=== PATIENT | female | born 2000 | race Hispanic/Latino ===

== ENCOUNTER 2023-01-15 09:03 | Emergency (ER) | payer BC ==
--- OUTSIDE RECORDS SUMMARY | 2023-01-15 09:28 | XMS REPORT | Continuity of Care Document ---
:2000 Author Organization [facility] t Address [address] [place] [id number] Care Team Providers Name Role Phone [email or web address] Attending Clinician Unavailable [email or web address] Admitting Clinician Unavailable Problems This patient has no known problems. Allergies, Adverse Reactions, Alerts This patient has no known allergies or adverse reactions. Medications This patient has no known medications. Procedures This patient has no known procedures. Encounters Start End Encounter Admission Attending Care Care Encounter Source Date/Time Date/Time Type Type Clinicians Facility Department ID 2023-01-03 2023-01-03 Outpatient [email or web address] PRIV PRIV [id number] [facility] 00:00:00 00:00:00 diyala_S [id number] Medic al Results This patient has no known results.
[2023-01-15 10:00] LABS: Specific Gravity 1.005 (1.005-1.030)
--- NOTE | 2023-01-15 10:06 | ER ---
Nurse's Notes [facility] Name: Gayatri Lindo Age: 22 yrs Sex: Female : 2000 Arrival Date: 01/15/2023 Time: 09:03 Bed 14 Private MD: Diagnosis: Premenstrual tension syndrome Presentation: 01/15 09:22 Chief complaint: Patient states: c/o breast tenderness X 1-2 weeks, she told her job iw her chest hurt and they told her she needed to get a work note. Coronavirus screen: At this time, the client does not indicate any symptoms associated with coronavirus-19. Ebola Screen: Patient negative for fever greater than or equal to 101.5 degrees Fahrenheit, and additional compatible Ebola Virus Disease symptoms Patient denies exposure to infectious person. Patient denies travel to an Ebola-affected area in the 21 days before illness onset. No symptoms or risks identified at this time. Initial Sepsis Screen: Does the patient meet any 2 criteria? No. Patient's initial sepsis screen is negative. Does the patient have a suspected source of infection?. Risk Assessment: Do you want to hurt yourself or someone else? Patient reports no desire to harm self or others. Onset of symptoms was January 08, 2023. 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 - Social history:: Smoking status: Patient denies any tobacco usage or history of. Screenin:30 [facility] ED Fall Risk Assessment (Adult) Score/Fall Risk Level 0 - 2 = Low Risk. Abuse eh3 screen: Denies threats or abuse. Denies injuries from another. Nutritional screening: No deficits noted. Tuberculosis screening: No symptoms or risk factors identified. Assessment: 09:30 General: Appears in no apparent distress. uncomfortable, Behavior is cooperative, eh3 appropriate for age, anxious. Pain: Complains of pain in right breast and left breast. Neuro: Level of Consciousness is awake, alert, obeys commands, Oriented to person, place, time, situation. Cardiovascular: Capillary refill < 3 seconds Patient's skin is warm and dry. Respiratory: Airway is patent Respiratory effort is even, unlabored, Respiratory pattern is regular, symmetrical. GI: Abdomen is round non-distended, Bowel sounds present X 4 quads. Abd is soft and non tender X 4 quads. GI: Reports cramping. : Denies pain urinary frequency, urgency. Derm: Skin is pink, warm \T\ dry. Musculoskeletal: Circulation, motion, and sensation intact. Range of motion: intact in all extremities. Vital Signs: 09:22 BP 139 / 83; Pulse 92; Resp 16; Temp 98.4; Pulse Ox 100% ; Weight 61.23 kg; Height 5 iw ft. 2 in. ; Pain 8/10; 10:15 BP 117 / 74; Pulse 84; Resp 18; Pulse Ox 100% on R/A; eh3 09:22 Body Mass Index 24.69 (61.23 kg, 157.48 cm) iw 09:22 Pain Scale: Adult iw ED Course: 09:04 Patient arrived in ED. rg4 09:04 Marco Rivera DO is Attending Physician. ms3 09:24 Triage completed. iw 09:25 Arm band placed on. iw 09:30 Patient has correct armband on for positive identification. Bed in low position. Call eh3 light in reach. Side rails up X2. Provided Education on: use of call guy. Pulse ox on. NIBP on. 09:38 Lori Hernandez, FARHAD is Primary Nurse. eh3 10:34 No provider procedures requiring assistance completed. Patient did not have IV access eh3 during this emergency room visit. Administered Medications: No medications were administered Medication: 10:34 VIS not applicable for this client. eh3 Outcome: 10:05 Discharge ordered by . snw 10:35 Discharged to home ambulatory, eh3 10:35 Condition: stable 10:35 Discharge instructions given to patient, Instructed on discharge instructions, follow up and referral plans. medication usage, Demonstrated understanding of instructions, follow-up care, medications, Prescriptions given X 1, 10:36 Patient left the ED. eh3 Signatures: Yusra Collado, RIOS-C ASSURANCE ANALYST-Dericw Ruthie Kelly, RN FARHAD iw Anahi Perez rg4 Marco Rivera DO DO ms3 Lori Hernandez, RN RN eh3
--- NOTE | 2023-01-15 10:06 | EDPHYS ---
Physician Documentation [facility] Name: Gayatri Lindo Age: 22 yrs Sex: Female : 2000 Arrival Date: 01/15/2023 Time: 09:03 Bed 14 Private MD: ED Physician Marco Rivera HPI: 01/15 09:12 This 22 yrs old Female presents to ER via Unassigned with complaints of ms3 Abdominal Cramping. 09:12 22-year-old female with past medical history of asthma presents to the emergency ms3 department for bilateral breast pain. Patient states this occurs with her menses and she is 3 days late. Patient denies vaginal bleeding. Patient states she is taken Midol without relief. Patient denies alleviating or inciting factors. 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 - Social history:: Smoking status: Patient denies any tobacco usage or history of. ROS: 09:12 Constitutional: Negative for fever, and chills. Neck: Negative for injury, pain, and ms3 swelling, Cardiovascular: Negative for chest pain, and palpitations. Respiratory: Negative for shortness of breath, cough, wheezing, and pleuritic chest pain, Abdomen/GI: Negative for abdominal pain, nausea, vomiting, diarrhea, and constipation, MS/Extremity: Negative for injury and deformity, Skin: Negative for injury, rash, and discoloration, 09:12 Cardiovascular: Positive for 09:12 MS/extremity: Positive for Bilateral Breast pain, Exam: 09:12 Constitutional: This is a well developed, well nourished patient who is awake, alert, ms3 and in no acute distress. Head/Face: Normocephalic, atraumatic. Neck: Trachea midline, no cervical lymphadenopathy. Supple, full range of motion without nuchal rigidity, or vertebral point tenderness. No Meningismus. Cardiovascular: Regular rate and rhythm with a normal S1 and S2. No gallops, murmurs, or rubs. Normal PMI, no JVD. No pulse deficits. Respiratory: Lungs have equal breath sounds bilaterally, clear to auscultation and percussion. No rales, rhonchi or wheezes noted. No increased work of breathing, no retractions or nasal flaring. Abdomen/GI: Soft, non-tender, with normal bowel sounds. No distension or tympany. No guarding or rebound. No evidence of tenderness throughout. MS/ Extremity: Pulses equal, no cyanosis. Neurovascular intact. Full, normal range of motion. Vital Signs: 09:22 BP 139 / 83; Pulse 92; Resp 16; Temp 98.4; Pulse Ox 100% ; Weight 61.23 kg; Height 5 iw ft. 2 in. ; Pain 8/10; 10:15 BP 117 / 74; Pulse 84; Resp 18; Pulse Ox 100% on R/A; eh3 09:22 Body Mass Index 24.69 (61.23 kg, 157.48 cm) iw 09:22 Pain Scale: Adult iw MDM: 09:15 Patient medically screened. ms3 10:07 Differential diagnosis: ectopic , premenstrual syndrome. Data reviewed: vital snw signs, nurses notes, lab test result(s). Counseling: I had a detailed discussion with the patient and/or guardian regarding the historical points, exam findings, and any diagnostic results supporting the discharge/admit diagnosis, lab results, the need for outpatient follow up, for definitive care, an OB/Gyne specialist, to return to the emergency department if symptoms worsen or persist or if there are any questions or concerns that arise at home. Special discussion: I have referred the patient to see his PCP for further evaluation of high blood pressure. Based on the history and exam findings, there is no indication for further emergent testing or inpatient evaluation. I discussed with the patient/guardian the need to see the OB Gyne specialist for further evaluation of the symptoms. I discussed with the patient/guardian the need to see the primary care provider for further evaluation of the symptoms. 01/15 09:22 Order name: Test, Urine; Complete Time: 10:04 ms3 Administered Medications: No medications were administered Disposition: 16:35 I was immediately available on-site in the Emergency Department for consultation in the tx3 care of the patient. Disposition Summary: 01/15/23 10:05 Discharge Ordered Notes: Location: Home snw Condition: Stable snw Diagnosis - Premenstrual tension syndrome snw Followup: snw - With: Emergency Department - When: As needed - Reason: Worsening of condition Followup: snw - With: Private Physician - When: 2 - 3 days - Reason: Recheck today's complaints, Continuance of care, Re-evaluation by your physician Discharge Instructions: - Discharge Summary Sheet snw - Premenstrual Syndrome snw - Breast Tenderness snw Forms: - Work release form snw - Medication Reconciliation Form snw - Thank You Letter snw - Antibiotic Education snw - Prescription Opioid Use snw - Patient Portal Instructions snw - Leadership Thank You Letter snw Prescriptions: - Diclofenac Sodium 75 mg Oral Tablet Sustained Release - take 1 tablet ORAL route 2 times per day; 30 tablet; Refills: 0, Product snw Selection Permitted Signatures: Dispatcher [employer] EDYusra Torres, RIOS-C VETERINARY INSPECTOR-Csnw Ruthie Kelly, RN RN iw Marco Rivera DO DO ms3
[2023-01-15 10:41] VITALS: BP 139/83; TEMP 98.4; O2SAT 100
== END 2023-01-15 10:36 | disposition home or self-care (01) ==
LOC: ER 09:03
DX: N94.3 Premenstrual tension syndrome (principal)
CPT/HCPCS: 81025; 99283